=== PATIENT | male | born 1995 | race Caucasian/White ===

== ENCOUNTER 2021-12-24 13:01 | Emergency (ER) | payer BC ==
[2021-12-24] MEDS ORDERED: Propofol 200 MG/20 ML SDV ONE (16:17)
[2021-12-24] MEDS ORDERED: Dexmedetomidine 200 MCG/2 ML SDV ONE (16:17)
[2021-12-24] MEDS ORDERED: fentaNYL 100 MCG/2 ML SDV ONE (16:17)
[2021-12-24] MEDS ORDERED: Ketamine 500 mg/10 ML MDV ONE (16:30)
[2021-12-24] MEDS ORDERED: Midazolam 1 MG/ML 2 ML SDV ONE (16:32)
== END 2021-12-24 14:17 | disposition home or self-care (01) ==
LOC: MW.ED 13:01 → EDBD 13:01 → MW.ED 14:17
DX: S43.122A Dislocation of left acromioclavicular joint, 100%-200% displacement, initial encounter (principal); Z88.0 Allergy status to penicillin; Z88.2 Allergy status to sulfonamides; Y04.0XXA Assault by unarmed brawl or fight, initial encounter
CPT/HCPCS: 73000; 73030; 99283; J2704; J3010